=== PATIENT | male | born 1980 | race Caucasian/White ===

== ENCOUNTER 2017-11-16 20:01 | Emergency (ER) | payer BC ==
[2017-11-16] MEDS ORDERED: DIPHTH,PERTUSS(ACELL),TET TOX 0.5 ML DISP.SYRIN. VAX IM ×2 (20:15)
[2017-11-16 20:20] LABS: ADD MAN DIFF? NO
[2017-11-16 20:21] LABS: BASO % 1 % (0-3); EOS # 0.2 x10^3/uL (0.0-0.7); EOS % 3 % (0-3); HEMOGLOBIN 14.5 g/dL (13.0-17.5); LYMPH # 2.1 x10^3/uL (1.0-4.8); LYMPH % 27 % (24-48); MEAN CORPUSCULAR HEMOGLOBIN 29 pg (25-35); MEAN CORPUSCULAR HGB CONC 34 g/dL (31-37); MEAN CORPUSCULAR VOLUME 87 fL (79-100); MONO # 0.7 x10^3/uL (0.0-1.1); MONO % 9 % (0-9); NEUT # 4.7 x10^3uL (1.8-7.7); NEUT % 61 % (31-73); PLATELET COUNT 220 x10^3/uL (140-400); RED BLOOD COUNT 4.94 x10^6/uL (4.30-5.70); RED CELL DISTRIBUTION WIDTH 12.6 % (11.5-14.5); WHITE BLOOD COUNT 7.6 x10^3/uL (4.0-11.0)
[2017-11-16 20:32] LABS: ANION GAP 7 (6-14); BLOOD UREA NITROGEN 15 mg/dL (8-26); BUN/CREATININE RATIO 13 (6-20); CALCIUM 8.4 mg/dL (8.5-10.1); CARBON DIOXIDE 29 mmol/L (21-32); CHLORIDE 102 mmol/L (98-107); CREATININE 1.2 mg/dL (0.7-1.3); GFR 69.3; GLUCOSE 104 mg/dL (70-99); POTASSIUM 3.7 mmol/L (3.5-5.1); SODIUM 138 mmol/L (136-145)
[2017-11-16 20:38] LABS: ALBUMIN 3.9 g/dL (3.4-5.0); ALBUMIN/GLOBULIN RATIO 1.1 (1.0-1.7); ALK PHOS 62 U/L (46-116); ALT (SGPT) 47 U/L (16-63); AST (SGOT) 26 U/L (15-37); TOTAL BILIRUBIN 0.6 mg/dL (0.2-1.0); TOTAL PROTEIN 7.4 g/dL (6.4-8.2)
[2017-11-16] MEDS: IV NORMAL SALINE 1000ML BAG 1,000 ML IV ×2 (20:50)
[2017-11-16] MEDS ORDERED: FAMOTIDINE 20 MG/2 ML VIAL ×2 (21:47)
[2017-11-16] MEDS ORDERED: ONDANSETRON PF 4 MG/2 ML VIAL. ×2 (21:47)
[2017-11-16] MEDS: ONDANSETRON PF 4 MG/2 ML VIAL. IV ×4 (21:55→22:42)
[2017-11-16] MEDS: FAMOTIDINE 20 MG/2 ML VIAL IVP ×2 (21:55)
[2017-11-16] MEDS: MORPHINE SULFATE 10 MG/ML VIAL. IV ×2 (22:42)
[2017-11-16] MEDS: ONDANSETRON ODT 4 MG TAB.RAPDIS. PO ×2 (23:09)
[2017-11-16] MEDS: CEPHALEXIN 250 MG CAPSULE. PO ×2 (23:09)
[2017-11-16] MEDS: HYDROcodone/APAP 10/325 1 TAB TABLET PO ×2 (23:09)
== END 2017-11-16 23:13 | disposition home or self-care (01) ==
LOC: ER 20:01
DX: S02.31XA Fracture of orbital floor, right side, initial encounter for closed fracture (principal); S02.2XXA Fracture of nasal bones, initial encounter for closed fracture; S01.01XA Laceration without foreign body of scalp, initial encounter; S06.0X1A Concussion with loss of consciousness of 30 minutes or less, initial encounter; W50.0XXA Accidental hit or strike by another person, initial encounter; Y93.89 Activity, other specified; Y92.89 Other specified places as the place of occurrence of the external cause; Y99.8 Other external cause status
CPT/HCPCS: 12001; 12011; 36415; 70450; 70486; 71045; 72125; 80053; 85025; 96361; 96374; 96375; 96376; 99285-25; J2270; J2405; J7030; Q0162; S0028

== ENCOUNTER 2020-04-10 00:58 | Emergency (ER) | payer BC ==
[~2020-04-10] VITALS: Ht 175.3 cm; Wt 83.0 kg
[2020-04-10 01:15] VITALS: BP 114/67
[2020-04-10] MEDS ORDERED: LIDOCAINE 1%/EPI 1:100,000 20 ML VIAL. INJ ONE (02:00)
[2020-04-10] MEDS ORDERED: NEOMY/BACITR/POLYMYXIN OINT PACKET. TP ONE (02:00)
[2020-04-10] MEDS ORDERED: CHLO15MO2 PO (03:42)
--- NOTE | 2020-04-10 03:43 | PHYS DOC ---
Past Medical History Past Medical History: No Pertinent History Past Surgical History: Other Additional Past Surgical Histo: LEFT ORBITAL, LEFT KNEE Smoking Status: Never Smoker Alcohol Use: Occasionally Drug Use: None General Adult EDM: Chief Complaint: LACERATION/AVULSION HPI: HPI: Patient is a 39 year old [f__sex] who presents with [] Review of Systems: Review of Systems: Constitutional: Denies fever or chills. [] Eyes: Denies change in visual acuity. [] HENT: Denies nasal congestion or sore throat. [] Respiratory: Denies cough or shortness of breath. [] Cardiovascular: Denies chest pain or edema. [] GI: Denies abdominal pain, nausea, vomiting, bloody stools or diarrhea. [] : Denies dysuria. [] Musculoskeletal: Denies back pain or joint pain. [] Integument: Denies rash. [] Neurologic: Denies headache, focal weakness or sensory changes. [] Endocrine: Denies polyuria or polydipsia. [] Lymphatic: Denies swollen glands. [] Psychiatric: Denies depression or anxiety. [] Heart Score: Risk Factors: Risk Factors: DM, Current or recent (<one month) smoker, HTN, HLP, family history of CAD, obesity. Risk Scores: Score 0 - 3: 2.5% MACE over next 6 weeks - Discharge Home Score 4 - 6: 20.3% MACE over next 6 weeks - Admit for Clinical Observation Score 7 - 10: 72.7% MACE over next 6 weeks - Early Invasive Strategies Current Medications: Current Medications Medications (Trade) Dose Ordered Sig/Laura Start Time Stop Time Status Last Admin Dose Admin Lidocaine/ Epinephrine (LIDOCAINE 1%-EPI 1:100,000 Multi-Dose) 20 ml 1X ONCE 04/10/20 02:00 04/10/20 02:01 DC Neomycin/ Polymyxin/ Bacitracin (Triple Antibiotic Ointment) 1 pkt 1X ONCE 04/10/20 02:00 04/10/20 02:01 DC Allergies: Allergies: Allergies Coded Allergies Type Severity Reaction Last Updated Verified No Known Drug Allergies 11/16/17 No Physical Exam: PE: Constitutional: Well developed, well nourished, no acute distress, non-toxic appearance. [] HENT: Normocephalic, atraumatic, bilateral external ears normal, oropharynx moist, no oral exudates, nose normal. [] Eyes: PERRLA, EOMI, conjunctiva normal, no discharge. [] Neck: Normal range of motion, no tenderness, supple, no stridor. [] Cardiovascular:Heart rate regular rhythm, no murmur [] Lungs & Thorax: Bilateral breath sounds clear to auscultation [] Abdomen: Bowel sounds normal, soft, no tenderness, no masses, no pulsatile masses. [] Skin: Warm, dry, no erythema, no rash. [] Back: No tenderness, no CVA tenderness. [] Extremities: No tenderness, no cyanosis, no clubbing, ROM intact, no edema. [] Neurologic: Alert and oriented X 3, normal motor function, normal sensory function, no focal deficits noted. [] Psychologic: Affect normal, judgement normal, mood normal. [] Current Patient Data: Vital Signs: Vital Signs Date Time Temp Pulse Resp B/P (MAP) Pulse Ox O2 Delivery O2 Flow Rate FiO2 04/10/20 01:15 97.8 82 18 114/67 (83) 95 Room Air 97.8 EKG: EKG: [] Radiology/Procedures: Radiology/Procedures: [] Course & Med Decision Making: Course & Med Decision Making Pertinent Labs and Imaging studies reviewed. (See chart for details) [] Dragon Disclaimer: Janell Disclaimer: This electronic medical record was generated, in whole or in part, using a voice recognition dictation system. Departure Departure Impression: Primary Impression: Lip laceration Qualified Codes: S01.511A - Laceration without foreign body of lip, initial encounter Disposition: HOME, SELF-CARE Condition: STABLE Referrals: NO PCP (PCP) Patient Instructions: Facial Laceration, [id number], Laceration Care, Adult, [id number], Mouth Laceration, [id number] Additional Instructions: Do not soak your wound. You may shower. Clean wound daily with soap and water. Change dressing 2 times daily. Use over the counter antibiotic ointment with each dressing change. Sutures need to be removed in 5 days. Present to your family doctor or local urgent care for removal. You may also present to the ED but it will be an additional visit/charge. After suture removal you may use Vitamin E ointment to soften the wound and p revent scarring. Use over the counter Tylenol and/or Ibuprofen Scripts Chlorhexidine Gluconate (PERIDEX) 15 Ml Mouthwash 15 ML PO BID for 10 Days, #473 ML 0 Refills Prov: DARIUS REILLY DO 04/10/20 Justicifation of Admission Dx: Justifications for Admission: Justification of Admission Dx: N/A DARIUS REILLY DO Apr 10, 2020 03:43
== END 2020-04-10 03:50 | disposition home or self-care (01) ==
LOC: ER 00:58
DX: S01.511A Laceration without foreign body of lip, initial encounter (principal); Z98.890 Other specified postprocedural states; X58.XXXA Exposure to other specified factors, initial encounter; Y93.89 Activity, other specified; Y92.89 Other specified places as the place of occurrence of the external cause; Y99.8 Other external cause status
CPT/HCPCS: 96372; 99283; J3490; 12011

== ENCOUNTER 2020-09-30 19:13 | Inpatient (IN) | payer BC ==
[~2020-09-30] VITALS: Ht 175.3 cm; Wt 87.1 kg
[~2020-09-30 19:13] MED LIST: CHLO15MO2 PO
[2020-09-30] MEDS ORDERED: IV NORMAL SALINE 1000ML BAG 1,000 ML IV ONE (19:45)
[2020-09-30] MEDS ORDERED: PANTOPRAZOLE IV PUSH 40 MG VIAL. IVP ONE (19:45)
[2020-09-30 19:55] LABS: BASO # 0.1 x10^3/uL (0.0-0.2); BASO % 1 % (0-3); EOS # 0.2 x10^3/uL (0.0-0.7); EOS % 2 % (0-3); HEMATOCRIT 36.1 % (39.0-53.0); HEMOGLOBIN 12.5 g/dL (13.0-17.5); LYMPH # 1.1 x10^3/uL (1.0-4.8); LYMPH % 10 % (24-48); MEAN CORPUSCULAR HEMOGLOBIN 31 pg (25-35); MEAN CORPUSCULAR HGB CONC 35 g/dL (31-37); MEAN CORPUSCULAR VOLUME 88 fL (79-100); MONO # 1.1 x10^3/uL (0.0-1.1); MONO % 10 % (0-9); NEUT # 8.9 x10^3/uL (1.8-7.7); NEUT % 78 % (31-73); PLATELET COUNT 295 x10^3/uL (140-400); RED CELL DISTRIBUTION WIDTH 13.1 % (11.5-14.5); WHITE BLOOD COUNT 11.3 x10^3/uL (4.0-11.0)
[2020-09-30] MEDS ORDERED: ONDANSETRON PF 4 MG/2 ML VIAL. IVP ONE ×2 (20:00→21:30)
[2020-09-30 20:11] LABS: CALCIUM 8.4 mg/dL (8.5-10.1); CREATININE 1.3 mg/dL (0.7-1.3); GFR 62.1; POTASSIUM 4.2 mmol/L (3.5-5.1)
[2020-09-30 20:13] LABS: PROTHROMBIN TIME PATIENT 14.5 SEC (11.7-14.0)
[2020-09-30 20:18] LABS: ALBUMIN 3.2 g/dL (3.4-5.0); ALBUMIN/GLOBULIN RATIO 1.1 (1.0-1.7); TOTAL BILIRUBIN 1.6 mg/dL (0.2-1.0)
[2020-09-30] MEDS ORDERED: IOHEXOL 350 MG/ML 100 ML VIAL. IV ONE (20:30)
[2020-09-30] MEDS ORDERED: CONTRAST GIVEN. MC PRN (20:45)
--- NOTE | 2020-09-30 21:18 | RAD ---
Exam: CT of abdomen and pelvis without and with contrast INDICATION: Abdominal pain, hematemesis TECHNIQUE: Sequential axial images through the abdomen and pelvis obtained before and after the admin istration of 90 mL of Isovue-370 IV contrast. Sagittal and coronal reformatted images were reconstruc tyrell from the axial data and reviewed. Comparisons: None FINDINGS: Heart size is normal. No pericardial effusion. Strandy opacities at dependent portion lungs likely re presenting atelectasis. No pleural effusion. Liver, spleen, pancreas, gallbladder and adrenals are unremarkable. No perinephric inflammation or hydronephrosis. No renal or ureteral calculi are identified. Bladder is distended and appears thin-walled. Prostate is not enlarged. Mild diverticulosis at the sigmoid colon without evidence of acute diverticulitis. Remainder of the l arge and small bowel are unremarkable. Appendix is normal. No free intra-abdominal air or fluid. Abdominal aorta has a normal course and caliber. Abdominal vasculature is patent. No enlarged abdominal lymph nodes are identified. No suspicious osseous lesions or acute fractures. IMPRESSION: 1. No evidence for contrast extravasation in the abdomen or pelvis. 2. No acute process identified in the abdomen or pelvis. Exposure: One or more of the following in the visualized dose reduction techniques were utilized for this examination: 1. Automated exposure control 2. Adjustment of the MA and/or KV according to patient size 3. Use of iterative of reconstructive technique Electronically signed by: Emmanuel Roman MD (09/30/2020 9:16 PM) [facility]
--- NOTE | 2020-09-30 21:33 | ED.ADGEN ---
Past Medical History Past Medical History: No Pertinent History Past Surgical History: Other Additional Past Surgical Histo: knee surgery Smoking Status: Never Smoker Alcohol Use: Occasionally Drug Use: None General Adult EDM: Chief Complaint: BLOODY STOOL HPI: HPI: Patient is a 39-year-old previously healthy male who presents to the emergency room complaining of a GI bleed. Patient states that he has been feeling completely normal and then suddenly at 5 this evening he had an episode of bright red vomit. He has never had anything like this previously. He has since had 2 more episodes of bright red vomit and one episode of black tarry stools. He denies any ibuprofen use. He is not an alcohol drinker. He states that he feels fatigued, shortness of breath, lightheaded. He has not had any recent trauma. He denies any fever or URI symptoms. Review of Systems: Review of Systems: Complete ROS is negative unless otherwise documented in HPI Current Medications: Current Medications Medications (Trade) Dose Ordered Sig/Laura Start Time Stop Time Status Last Admin Dose Admin Info (CONTRAST GIVEN -- Rx MONITORING) 1 each PRN DAILY PRN 09/30/20 20:45 10/02/20 20:44 Iohexol (Omnipaque 350 Mg/ml) 90 ml 1X ONCE 09/30/20 20:30 09/30/20 20:31 DC Ondansetron HCl (Zofran) 4 mg 1X ONCE 09/30/20 21:30 09/30/20 21:31 DC 09/30/20 21:23 4 MG Pantoprazole Sodium (PROTONIX VIAL for IV PUSH) 80 mg 1X ONCE 09/30/20 19:45 09/30/20 19:46 DC 09/30/20 19:54 80 MG Sodium Chloride 1,000 ml @ 1,000 mls/hr 1X ONCE 09/30/20 19:45 09/30/20 20:44 DC 09/30/20 19:54 1,000 MLS/HR Allergies: Allergies: Allergies Coded Allergies Type Severity Reaction Last Updated Verified No Known Drug Allergies 11/16/17 No Physical Exam: PE: General: Awake, alert, NAD. Pale HEENT: Atraumatic, EOMI, PERRL, airway patent, moist oral mucosa Neck: Supple, trachea midline Respiratory: CTA bilaterally, normal effort, no wheezing/crackles CV: RRR, no murmur, cap refill <2 GI: Soft, nondistended, nontender, no masses MSK: No obvious deformities Skin: Warm, dry, intact Neuro: A&O x3, speech NL, sensory and motor grossly intact, no focal deficits Psych: Normal affect, normal mood, not suicidal or homicidal Current Patient Data: Labs: Laboratory Tests Test 09/30/20 19:45 09/30/20 20:00 White Blood Count 11.3 x10^3/uL (4.0-11.0) H Red Blood Count 4.10 x10^6/uL (4.30-5.70) L Hemoglobin 12.5 g/dL (13.0-17.5) L Hematocrit 36.1 % (39.0-53.0) L Mean Corpuscular Volume 88 fL (79-100) Mean Corpuscular Hemoglobin 31 pg (25-35) Mean Corpuscular Hemoglobin Concent 35 g/dL (31-37) Red Cell Distribution Width 13.1 % (11.5-14.5) Platelet Count 295 x10^3/uL (140-400) Neutrophils (%) (Auto) 78 % (31-73) H Lymphocytes (%) (Auto) 10 % (24-48) L Monocytes (%) (Auto) 10 % (0-9) H Eosinophils (%) (Auto) 2 % (0-3) Basophils (%) (Auto) 1 % (0-3) Neutrophils # (Auto) 8.9 x10^3/uL (1.8-7.7) H Lymphocytes # (Auto) 1.1 x10^3/uL (1.0-4.8) Monocytes # (Auto) 1.1 x10^3/uL (0.0-1.1) Eosinophils # (Auto) 0.2 x10^3/uL (0.0-0.7) Basophils # (Auto) 0.1 x10^3/uL (0.0-0.2) Prothrombin Time 14.5 SEC (11.7-14.0) H Prothrombin Time INR 1.2 (0.8-1.1) H Fibrinogen 261 mg/dL (200-440) Sodium Level 137 mmol/L (136-145) Potassium Level 4.2 mmol/L (3.5-5.1) Chloride Level 102 mmol/L (98-107) Carbon Dioxide Level 26 mmol/L (21-32) Anion Gap 9 (6-14) Blood Urea Nitrogen 54 mg/dL (8-26) H Creatinine 1.3 mg/dL (0.7-1.3) Estimated GFR (Cockcroft-Gault) 62.1 BUN/Creatinine Ratio 42 (6-20) H Glucose Level 190 mg/dL (70-99) H Calcium Level 8.4 mg/dL (8.5-10.1) L Total Bilirubin 1.6 mg/dL (0.2-1.0) H Aspartate Amino Transferase (AST) 21 U/L (15-37) Alanine Aminotransferase (ALT) 27 U/L (16-63) Alkaline Phosphatase 43 U/L (46-116) L Total Protein 6.0 g/dL (6.4-8.2) L Albumin 3.2 g/dL (3.4-5.0) L Albumin/Globulin Ratio 1.1 (1.0-1.7) Ethyl Alcohol Level < 10 mg/dL (0-10) SARS-CoV-2 Antigen (Rapid) Negative (NEGATIVE) Laboratory Tests 09/30/20 19:45 Laboratory Tests 09/30/20 19:45 Vital Signs: Vital Signs Date Time Temp Pulse Resp B/P (MAP) Pulse Ox O2 Delivery O2 Flow Rate FiO2 09/30/20 21:52 90 16 115/67 (83) 95 Room Air 09/30/20 19:36 98.7 98.7 EKG: EKG: [] Heart Score: Risk Factors: Risk Factors: DM, Current or recent (<one month) smoker, HTN, HLP, family history of CAD, obesity. Risk Scores: Score 0 - 3: 2.5% MACE over next 6 weeks - Discharge Home Score 4 - 6: 20.3% MACE over next 6 weeks - Admit for Clinical Observation Score 7 - 10: 72.7% MACE over next 6 weeks - Early Invasive Strategies Radiology/Procedures: Radiology/Procedures: [] Course & Med Decision Making: Course & Med Decision Making Pertinent Labs and Imaging studies reviewed. (See chart for details) Patient is a 67-vlro-gdw-year-old male who presents to the emergency room complaining of hematemesis and melena. Patient's presentation is concerning for GI bleed. Upon arrival to the emergency room patient's vitals are stable and massive transfusion was not set off as patient is stable. Type and screen, CBC, CMP, lactate, CT abdomen and pelvis were ordered to evaluate for GI bleed. Patient was started on fluids. Initial hemoglobin was 12.5. There is a concern for acute GI bleed. GI was consulted and I did discuss the case with Dr. Garduno. Patient will be admitted and a rapid Covid swab will be done. Patient was discussed with Dr. Rees who will assume care. Dragon Disclaimer: Dragon Disclaimer: This electronic medical record was generated, in whole or in part, using a voice recognition dictation system. Departure Departure Impression: Primary Impression: GI bleed Disposition: ADMITTED INPT THIS HOSP Condition: STABLE Referrals: NO PCP (PCP) ALLY SILVEIRA MD Sep 30, 2020 21:33
[2020-09-30] MEDS ORDERED: METOCLOPRAMIDE HCL 10 MG/2 ML VIAL. IVP PRN (22:30)
[2020-09-30 23:00] VITALS: BP 111/55
[2020-09-30] MEDS: IV NORMAL SALINE 1000ML BAG 1,000 ML IV SCH (23:08)
[2020-09-30 23:58] LABS: HEMATOCRIT 32.8 % (39.0-53.0); HEMOGLOBIN 11.4 g/dL (13.0-17.5); RED BLOOD COUNT 3.73 x10^6/uL (4.30-5.70); RED CELL DISTRIBUTION WIDTH 12.9 % (11.5-14.5); WHITE BLOOD COUNT 10.1 x10^3/uL (4.0-11.0)
[2020-10-01 03:00] VITALS: BP 110/59
[2020-10-01] MEDS: IV NORMAL SALINE 1000ML BAG 1,000 ML IV SCH ×2 (05:22→11:50)
[2020-10-01] MEDS ORDERED: PANTOPRAZOLE SODIUM IV DRIP 80 MG in IV NORMAL SALINE 100ML 100 ML IV SCH (05:30)
[2020-10-01 07:00] VITALS: BP 93/40
[2020-10-01 07:38] LABS: BASO % 0 % (0-3); EOS # 0.1 x10^3/uL (0.0-0.7); EOS % 1 % (0-3); HEMATOCRIT 30.5 % (39.0-53.0); HEMOGLOBIN 10.4 g/dL (13.0-17.5); LYMPH % 15 % (24-48); MEAN CORPUSCULAR HEMOGLOBIN 30 pg (25-35); MEAN CORPUSCULAR HGB CONC 34 g/dL (31-37); MEAN CORPUSCULAR VOLUME 89 fL (79-100); MONO # 0.7 x10^3/uL (0.0-1.1); MONO % 11 % (0-9); NEUT # 4.9 x10^3/uL (1.8-7.7); NEUT % 73 % (31-73); PLATELET COUNT 213 x10^3/uL (140-400); RED BLOOD COUNT 3.44 x10^6/uL (4.30-5.70); RED CELL DISTRIBUTION WIDTH 13.2 % (11.5-14.5); WHITE BLOOD COUNT 6.7 x10^3/uL (4.0-11.0)
--- NOTE | 2020-10-01 07:48 | PDOC1 ---
History and Physical Date of Admission Date of Admission DATE: 10/01/20 TIME: 07:46 Identification/Chief Complaint Chief Complaint Vomiting blood Source Source: Patient History of Present Illness History of Present Illness Mr Watters is a 39 yo male with no significant past medical history who presents to the emergency room on 09/30/2020 complaining of vomiting blood and dark stools. Patient states that he has been feeling completely normal and then suddenly at 5 in the evening on 09/30 he had an episode of bright red emesis. He has never had anything like this previously. He has since had 2 more episodes of bright red emesis and one episode of black tarry stools. He states he does not use NSAIDs or drink alcohol. He states that he feels fatigued, shortness of breath, lightheaded. He has not had any recent trauma. He denies any fever or URI symptoms. Initial hemoglobin was 12.5, dropped to 11.4 and then 10.4 over a 12 hour period. WBC 11.3, NA 137, K4.2, BUN 54, CR 1.3, glucose 190, calcium 8.4, bilirubin 1.6, albumin 3.2, LFTs otherwise within normal laboratory limits, INR 1.2. CTA abdomen/pelvis with no extravasation of contrast and no abnormalities noted. Admitted for further care. Past Medical History Cardiovascular: No pertinent hx Past Surgical History Past Surgical History: Arthroscopy (left knee) Family History Family History: No Significant Social History Smoke: No ALCOHOL: none Drugs: None Current Problem List Problem List Problems Medical Problems: (1) GI bleed Status: Acute Current Medications Current Medications Current Medications Sodium Chloride 1,000 ml @ 1,000 mls/hr 1X ONCE IV Last administered on 09/30/20at 19:54; Start 09/30/20 at 19:45; Stop 09/30/20 at 20:44; Status DC Pantoprazole Sodium (PROTONIX VIAL for IV PUSH) 80 mg 1X ONCE IVP Last administered on 09/30/20at 19:54; Start 09/30/20 at 19:45; Stop 09/30/20 at 19:46; Status DC Ondansetron HCl (Zofran) 4 mg 1X ONCE IVP Last administered on 09/30/20at 19:59; Start 09/30/20 at 20:00; Stop 09/30/20 at 20:02; Status DC Iohexol (Omnipaque 350 Mg/ml) 90 ml 1X ONCE IV ; Start 09/30/20 at 20:30; Stop 09/30/20 at 20:31; Status DC Info (CONTRAST GIVEN -- Rx MONITORING) 1 each PRN DAILY PRN MC SEE COMMENTS; Start 09/30/20 at 20:45; Stop 10/02/20 at 20:44 Ondansetron HCl (Zofran) 4 mg 1X ONCE IVP Last administered on 09/30/20at 21:23; Start 09/30/20 at 21:30; Stop 09/30/20 at 21:31; Status DC Metoclopramide HCl (Reglan Vial) 10 mg PRN Q6HRS PRN IVP NAUSEA/VOMITING Last administered on 09/30/20at 22:31; Start 09/30/20 at 22:30 Sodium Chloride 1,000 ml @ 150 mls/hr Q6H40M IV Last administered on 10/01/20at 05:22; Start 09/30/20 at 22:30 Pantoprazole Sodium 80 mg/ Sodium Chloride 100 ml @ 10 mls/hr Q10H IV Last administered on 10/01/20at 05:57; Start 10/01/20 at 05:30 Active Scripts Active Reported No Known Medications Prior To Admisstion (Info) Each 1 Each 1X Allergies Allergies: Coded Allergies: No Known Drug Allergies (Unverified , 11/16/17) ROS General: No: Chills, Night Sweats, Fatigue, Malaise, Appetite, Other PSYCHOLOGICAL ROS: No: Anxiety, Behavioral Disorder, Concentration difficultie, Decreased libido, Depression, Disorientation, Hallucinations, Hostility, Irritablity, Memory difficulties, Mood Swings, Obsessive thoughts, Physical abuse, Sexual abuse, Sleep disturbances, Suicidal ideation, Other Eyes: No Blurry vision, No Decreased vision, No Double vision, No Dry eyes, No Excessive tearing, No Eye Pain, No Itchy Eyes, No Loss of vision, No Photophobia, No Scotomata, No Uses contacts, No Uses glasses, No Other HEENT: No: Heacaches, Visual Changes, Hearing change, Nasal congestion, Nasal discharge, Oral lesions, Sinus pain, Sore Throat, Epistaxis, Sneezing, Snoring, Tinnitus, Vertigo, Vocal changes, Other ALLERGY AND IMMUNOLOGY: No: Hives, Insect Bite Sensitivity, Itchy/Watery Eyes, Nasal Congestion, Post Nasal Drip, Seasonal Allergies, Other Hematological and Lymphatic: No: Bleeding Problems, Blood Clots, Blood Transfusions, Brusing, Night Sweats, Pallor, Swollen Lymph Nodes, Other ENDOCRINE: No: Breast Changes, Galactorrhea, Hair Pattern Changes, Hot Flashes, Malaise/lethargy, Mood Swings, Palpitations, Polydipsia/polyuria, Skin Changes, Temperature Intolerance, Unexpected Weight Changes, Other Breast: No New/Changing Breast Lumps, No Nipple changes, No Nipple discharge, No Other Respiratory: No: Cough, Hemoptysis, Orthopnea, Pleuritic Pain, Shortness of breath, SOB with excertion, Sputum Changes, Stridor, Tachypnea, Wheezing, Other Cardiovascular: No Chest Pain, No Palpitations, No Orthopnea, No Paroxysmal Noc. Dyspnea, No Edema, No Lt Headedness, No Other Gastrointestinal: Yes Nausea, Yes Vomiting, Yes Abdominal Pain; No Diarrhea, No Constipation, No Melena, No Hematochezia, No Other Genitourinary: No Dysuria, No Frequency, No Incontinence, No Hematuria, No Retention, No Discharge, No Urgency, No Pain, No Flank Pain, No Other, No , No , No , No , No , No , No Musculoskeletal: No Gait Disturbance, No Joint Pain, No Joint Stiffness, No Joint Swelling, No Muscle Pain, No Muscular Weakness, No Pain In:, No Swelling In:, No Other Neurological: No Behavorial Changes, No Bowel/Bladder ControlChng, No Confusion, No Dizziness, No Gait Disturbance, No Headaches, No Impaired Coord/balance, No Memory Loss, No Numbness/Tingling, No Seizures, No Speech Problems, No Tremors, No Visual Changes, No Weakness, No Other Skin: No Dry Skin, No Eczema, No Hair Changes, No Lumps, No Mole Changes, No Mottling, No Nail Changes, No Pruritus, No Rash, No Skin Lesion Changes, No Other, No Acne Physical Exam General: Alert, Oriented X3, Cooperative, No acute distress HEENT: Atraumatic, PERRLA, EOMI, Mucous membr. moist/pink Lungs: Clear to auscultation, Normal air movement Heart: S1S2, RRR, no thrills, no rubs, no gallops, no murmurs Abdomen: Normal bowel sounds, Soft, No tenderness, No hepatosplenomegaly, No masses Rectal Exam: not examined Extremities: No clubbing, No cyanosis, No edema, Normal pulses, No tenderness/swelling Skin: No rashes, No breakdown, No significant lesion Neuro: Normal gait, Normal speech, Strength at 5/5 X4 ext, Normal tone, Sensation intact, Cranial nerves 3-12 NL, Reflexes 2+ Psych/Mental Status: Mental status NL, Mood NL Vitals Vitals Vital Signs Date Time Temp Pulse Resp B/P (MAP) Pulse Ox O2 Delivery O2 Flow Rate FiO2 10/01/20 07:00 98.2 65 18 93/40 (57) 97 Room Air 98.2 Labs Labs Laboratory Tests Test 09/30/20 19:45 09/30/20 20:00 09/30/20 23:45 10/01/20 06:10 White Blood Count 11.3 x10^3/uL (4.0-11.0) 10.1 x10^3/uL (4.0-11.0) 6.7 x10^3/uL (4.0-11.0) Red Blood Count 4.10 x10^6/uL (4.30-5.70) 3.73 x10^6/uL (4.30-5.70) 3.44 x10^6/uL (4.30-5.70) Hemoglobin 12.5 g/dL (13.0-17.5) 11.4 g/dL (13.0-17.5) 10.4 g/dL (13.0-17.5) Hematocrit 36.1 % (39.0-53.0) 32.8 % (39.0-53.0) 30.5 % (39.0-53.0) Mean Corpuscular Volume 88 fL (79-100) 88 fL (79-100) 89 fL (79-100) Mean Corpuscular Hemoglobin 31 pg (25-35) 31 pg (25-35) 30 pg (25-35) Mean Corpuscular Hemoglobin Concent 35 g/dL (31-37) 35 g/dL (31-37) 34 g/dL (31-37) Red Cell Distribution Width 13.1 % (11.5-14.5) 12.9 % (11.5-14.5) 13.2 % (11.5-14.5) Platelet Count 295 x10^3/uL (140-400) 228 x10^3/uL (140-400) 213 x10^3/uL (140-400) Neutrophils (%) (Auto) 78 % (31-73) 73 % (31-73) Lymphocytes (%) (Auto) 10 % (24-48) 15 % (24-48) Monocytes (%) (Auto) 10 % (0-9) 11 % (0-9) Eosinophils (%) (Auto) 2 % (0-3) 1 % (0-3) Basophils (%) (Auto) 1 % (0-3) 0 % (0-3) Neutrophils # (Auto) 8.9 x10^3/uL (1.8-7.7) 4.9 x10^3/uL (1.8-7.7) Lymphocytes # (Auto) 1.1 x10^3/uL (1.0-4.8) 1.0 x10^3/uL (1.0-4.8) Monocytes # (Auto) 1.1 x10^3/uL (0.0-1.1) 0.7 x10^3/uL (0.0-1.1) Eosinophils # (Auto) 0.2 x10^3/uL (0.0-0.7) 0.1 x10^3/uL (0.0-0.7) Basophils # (Auto) 0.1 x10^3/uL (0.0-0.2) 0.0 x10^3/uL (0.0-0.2) Prothrombin Time 14.5 SEC (11.7-14.0) Prothromb Time International Ratio 1.2 (0.8-1.1) Fibrinogen 261 mg/dL (200-440) Sodium Level 137 mmol/L (136-145) Potassium Level 4.2 mmol/L (3.5-5.1) Chloride Level 102 mmol/L (98-107) Carbon Dioxide Level 26 mmol/L (21-32) Anion Gap 9 (6-14) Blood Urea Nitrogen 54 mg/dL (8-26) Creatinine 1.3 mg/dL (0.7-1.3) Estimated GFR (Cockcroft-Gault) 62.1 BUN/Creatinine Ratio 42 (6-20) Glucose Level 190 mg/dL (70-99) Calcium Level 8.4 mg/dL (8.5-10.1) Total Bilirubin 1.6 mg/dL (0.2-1.0) Aspartate Amino Transf (AST/SGOT) 21 U/L (15-37) Alanine Aminotransferase (ALT/SGPT) 27 U/L (16-63) Alkaline Phosphatase 43 U/L (46-116) Total Protein 6.0 g/dL (6.4-8.2) Albumin 3.2 g/dL (3.4-5.0) Albumin/Globulin Ratio 1.1 (1.0-1.7) Ethyl Alcohol Level < 10 mg/dL (0-10) SARS-CoV-2 Antigen (Rapid) Negative (NEGATIVE) Laboratory Tests Test 09/30/20 19:45 09/30/20 20:00 09/30/20 23:45 10/01/20 06:10 White Blood Count 11.3 x10^3/uL (4.0-11.0) 10.1 x10^3/uL (4.0-11.0) 6.7 x10^3/uL (4.0-11.0) Red Blood Count 4.10 x10^6/uL (4.30-5.70) 3.73 x10^6/uL (4.30-5.70) 3.44 x10^6/uL (4.30-5.70) Hemoglobin 12.5 g/dL (13.0-17.5) 11.4 g/dL (13.0-17.5) 10.4 g/dL (13.0-17.5) Hematocrit 36.1 % (39.0-53.0) 32.8 % (39.0-53.0) 30.5 % (39.0-53.0) Mean Corpuscular Volume 88 fL (79-100) 88 fL (79-100) 89 fL (79-100) Mean Corpuscular Hemoglobin 31 pg (25-35) 31 pg (25-35) 30 pg (25-35) Mean Corpuscular Hemoglobin Concent 35 g/dL (31-37) 35 g/dL (31-37) 34 g/dL (31-37) Red Cell Distribution Width 13.1 % (11.5-14.5) 12.9 % (11.5-14.5) 13.2 % (11.5-14.5) Platelet Count 295 x10^3/uL (140-400) 228 x10^3/uL (140-400) 213 x10^3/uL (140-400) Neutrophils (%) (Auto) 78 % (31-73) 73 % (31-73) Lymphocytes (%) (Auto) 10 % (24-48) 15 % (24-48) Monocytes (%) (Auto) 10 % (0-9) 11 % (0-9) Eosinophils (%) (Auto) 2 % (0-3) 1 % (0-3) Basophils (%) (Auto) 1 % (0-3) 0 % (0-3) Neutrophils # (Auto) 8.9 x10^3/uL (1.8-7.7) 4.9 x10^3/uL (1.8-7.7) Lymphocytes # (Auto) 1.1 x10^3/uL (1.0-4.8) 1.0 x10^3/uL (1.0-4.8) Monocytes # (Auto) 1.1 x10^3/uL (0.0-1.1) 0.7 x10^3/uL (0.0-1.1) Eosinophils # (Auto) 0.2 x10^3/uL (0.0-0.7) 0.1 x10^3/uL (0.0-0.7) Basophils # (Auto) 0.1 x10^3/uL (0.0-0.2) 0.0 x10^3/uL (0.0-0.2) Prothrombin Time 14.5 SEC (11.7-14.0) Prothromb Time International Ratio 1.2 (0.8-1.1) Fibrinogen 261 mg/dL (200-440) Sodium Level 137 mmol/L (136-145) Potassium Level 4.2 mmol/L (3.5-5.1) Chloride Level 102 mmol/L (98-107) Carbon Dioxide Level 26 mmol/L (21-32) Anion Gap 9 (6-14) Blood Urea Nitrogen 54 mg/dL (8-26) Creatinine 1.3 mg/dL (0.7-1.3) Estimated GFR (Cockcroft-Gault) 62.1 BUN/Creatinine Ratio 42 (6-20) Glucose Level 190 mg/dL (70-99) Calcium Level 8.4 mg/dL (8.5-10.1) Total Bilirubin 1.6 mg/dL (0.2-1.0) Aspartate Amino Transf (AST/SGOT) 21 U/L (15-37) Alanine Aminotransferase (ALT/SGPT) 27 U/L (16-63) Alkaline Phosphatase 43 U/L (46-116) Total Protein 6.0 g/dL (6.4-8.2) Albumin 3.2 g/dL (3.4-5.0) Albumin/Globulin Ratio 1.1 (1.0-1.7) Ethyl Alcohol Level < 10 mg/dL (0-10) SARS-CoV-2 Antigen (Rapid) Negative (NEGATIVE) Images Images CT abdomen/pelvis with contrast: Heart size is normal. No pericardial effusion. Strandy opacities at dependent portion lungs likely representing atelectasis. No pleural effusion. Liver, spleen, pancreas, gallbladder and adrenals are unremarkable. No perinephric inflammation or hydronephrosis. No renal or ureteral calculi are identified. Bladder is distended and appears thin-walled. Prostate is not enlarged. Mild diverticulosis at the sigmoid colon without evidence of acute diverticulitis. Remainder of the large and small bowel are unremarkable. Appendix is normal. No free intra-abdominal air or fluid. Abdominal aorta has a normal course and caliber. Abdominal vasculature is patent. No enlarged abdominal lymph nodes are identified. No suspicious osseous lesions or acute fractures. IMPRESSION: 1. No evidence for contrast extravasation in the abdomen or pelvis. 2. No acute process identified in the abdomen or pelvis. VTE Prophylaxis Ordered VTE Prophylaxis Devices: Yes VTE Pharmacological Prophylaxi: Contraindicated Assessment/Plan Assessment/Plan A/P: GI bleed - likely PUD or gastric ulcer, NPO. PPI IV, consult GI JOVANI -vasomotor nephropathy Uremia -likely from upper GI bleed. Elevated bilirubin -likely from hemolyzed blood products. We will continue to monitor. Hyperglycemia -no diabetes and history likely stress-induced we will continue to monitor glucose. FEN - NPO PPX - SCDs, PPI FULL CODE Dispo - inpatient Justifications for Admission Other Justification MAURICIO OCONNELL MD Oct 01, 2020 07:48
[2020-10-01] MEDS ORDERED: ONDANSETRON PF 4 MG/2 ML VIAL. IV PRN (08:00)
[2020-10-01] MEDS ORDERED: ACETAMINOPHEN 650 MG SUPP.RECT. PR PRN (08:00)
[2020-10-01 08:06] LABS: ALBUMIN 2.7 g/dL (3.4-5.0); ALBUMIN/GLOBULIN RATIO 1.1 (1.0-1.7); CALCIUM 7.9 mg/dL (8.5-10.1); CREATININE 0.9 mg/dL (0.7-1.3); POTASSIUM 3.9 mmol/L (3.5-5.1); TOTAL BILIRUBIN 1.3 mg/dL (0.2-1.0); TOTAL PROTEIN 5.1 g/dL (6.4-8.2)
--- NOTE | 2020-10-01 10:08 | PDOC2 ---
GI CONSULT Date of Service: DATE: 10/01/20 TIME: 09:59 Reason For Consult: GI bleeding HPI: HPI: 39 y/o male with hematemesis last evening. No premonitory symptoms and denies abdominal pain per se though did have some "unease". Also had melena; last stool last night. May have had some heartburn remotely, not so much now. Denies dysphagia, PUD, GB, liver or pancreatic history. Non-smoker. Occasional alcohol. No ASA or NSAIS use. Typically no diarrhea or constipation. No hematochezia. Wt/appetite OK. GIFH negative. Imagine does not suggest liver disease though glucose a little high. PMH: PMH: OA, prior left knee scope. FH: Family History: CAD, DM, Hypertension Social History: Smoke: No ALCOHOL: occassional Drugs: None ROS: GEN: Denies fevers, chills, sweats HEENT: Denies blurred vision, sore throat CV: Denies chest pain RESP: Denies shortness of air, cough GI: Per HPI : Denies hematuria, dysuria ENDO: Denies weight changes NEURO: Denies confusion, dizziness MSK: Denies weakness, joint pain/swelling SKIN: Denies jaundice, pruritus Vitals: Vitals: Vital Signs Date Time Temp Pulse Resp B/P (MAP) Pulse Ox O2 Delivery O2 Flow Rate FiO2 10/01/20 08:10 Room Air 10/01/20 07:00 98.2 65 18 93/40 (57) 97 98.2 Labs: Labs: Laboratory Tests Test 09/30/20 19:45 09/30/20 20:00 09/30/20 23:45 10/01/20 06:10 White Blood Count 11.3 x10^3/uL (4.0-11.0) 10.1 x10^3/uL (4.0-11.0) 6.7 x10^3/uL (4.0-11.0) Red Blood Count 4.10 x10^6/uL (4.30-5.70) 3.73 x10^6/uL (4.30-5.70) 3.44 x10^6/uL (4.30-5.70) Hemoglobin 12.5 g/dL (13.0-17.5) 11.4 g/dL (13.0-17.5) 10.4 g/dL (13.0-17.5) Hematocrit 36.1 % (39.0-53.0) 32.8 % (39.0-53.0) 30.5 % (39.0-53.0) Mean Corpuscular Volume 88 fL (79-100) 88 fL (79-100) 89 fL (79-100) Mean Corpuscular Hemoglobin 31 pg (25-35) 31 pg (25-35) 30 pg (25-35) Mean Corpuscular Hemoglobin Concent 35 g/dL (31-37) 35 g/dL (31-37) 34 g/dL (31-37) Red Cell Distribution Width 13.1 % (11.5-14.5) 12.9 % (11.5-14.5) 13.2 % (11.5-14.5) Platelet Count 295 x10^3/uL (140-400) 228 x10^3/uL (140-400) 213 x10^3/uL (140-400) Neutrophils (%) (Auto) 78 % (31-73) 73 % (31-73) Lymphocytes (%) (Auto) 10 % (24-48) 15 % (24-48) Monocytes (%) (Auto) 10 % (0-9) 11 % (0-9) Eosinophils (%) (Auto) 2 % (0-3) 1 % (0-3) Basophils (%) (Auto) 1 % (0-3) 0 % (0-3) Neutrophils # (Auto) 8.9 x10^3/uL (1.8-7.7) 4.9 x10^3/uL (1.8-7.7) Lymphocytes # (Auto) 1.1 x10^3/uL (1.0-4.8) 1.0 x10^3/uL (1.0-4.8) Monocytes # (Auto) 1.1 x10^3/uL (0.0-1.1) 0.7 x10^3/uL (0.0-1.1) Eosinophils # (Auto) 0.2 x10^3/uL (0.0-0.7) 0.1 x10^3/uL (0.0-0.7) Basophils # (Auto) 0.1 x10^3/uL (0.0-0.2) 0.0 x10^3/uL (0.0-0.2) Prothrombin Time 14.5 SEC (11.7-14.0) Prothromb Time International Ratio 1.2 (0.8-1.1) Fibrinogen 261 mg/dL (200-440) Sodium Level 137 mmol/L (136-145) 140 mmol/L (136-145) Potassium Level 4.2 mmol/L (3.5-5.1) 3.9 mmol/L (3.5-5.1) Chloride Level 102 mmol/L (98-107) 108 mmol/L (98-107) Carbon Dioxide Level 26 mmol/L (21-32) 25 mmol/L (21-32) Anion Gap 9 (6-14) 7 (6-14) Blood Urea Nitrogen 54 mg/dL (8-26) 35 mg/dL (8-26) Creatinine 1.3 mg/dL (0.7-1.3) 0.9 mg/dL (0.7-1.3) Estimated GFR (Cockcroft-Gault) 62.1 95.0 BUN/Creatinine Ratio 42 (6-20) 39 (6-20) Glucose Level 190 mg/dL (70-99) 105 mg/dL (70-99) Calcium Level 8.4 mg/dL (8.5-10.1) 7.9 mg/dL (8.5-10.1) Total Bilirubin 1.6 mg/dL (0.2-1.0) 1.3 mg/dL (0.2-1.0) Aspartate Amino Transf (AST/SGOT) 21 U/L (15-37) 15 U/L (15-37) Alanine Aminotransferase (ALT/SGPT) 27 U/L (16-63) 22 U/L (16-63) Alkaline Phosphatase 43 U/L (46-116) 37 U/L (46-116) Total Protein 6.0 g/dL (6.4-8.2) 5.1 g/dL (6.4-8.2) Albumin 3.2 g/dL (3.4-5.0) 2.7 g/dL (3.4-5.0) Albumin/Globulin Ratio 1.1 (1.0-1.7) 1.1 (1.0-1.7) Ethyl Alcohol Level < 10 mg/dL (0-10) SARS-CoV-2 Antigen (Rapid) Negative (NEGATIVE) Activated Partial Thromboplast Time 25 SEC (24-38) Thyroid Stimulating Hormone (TSH) 1.232 uIU/mL (0.358-3.74) Allergies: Coded Allergies: No Known Drug Allergies (Unverified , 11/16/17) Medications: Current Medications Medications (Trade) Dose Ordered Sig/Laura Route PRN Reason Start Time Stop Time Status Last Admin Dose Admin Sodium Chloride 1,000 ml @ 1,000 mls/hr 1X ONCE IV 09/30/20 19:45 09/30/20 20:44 DC 09/30/20 19:54 Pantoprazole Sodium (PROTONIX VIAL for IV PUSH) 80 mg 1X ONCE IVP 09/30/20 19:45 09/30/20 19:46 DC 09/30/20 19:54 Ondansetron HCl (Zofran) 4 mg 1X ONCE IVP 09/30/20 20:00 09/30/20 20:02 DC 09/30/20 19:59 Ondansetron HCl (Zofran) 4 mg 1X ONCE IVP 09/30/20 21:30 09/30/20 21:31 DC 09/30/20 21:23 Metoclopramide HCl (Reglan Vial) 10 mg PRN Q6HRS PRN IVP NAUSEA/VOMITING 09/30/20 22:30 09/30/20 22:31 Sodium Chloride 1,000 ml @ 150 mls/hr Q6H40M IV 09/30/20 22:30 10/01/20 05:22 Pantoprazole Sodium 80 mg/ Sodium Chloride 100 ml @ 10 mls/hr Q10H IV 10/01/20 05:30 10/01/20 05:57 Imaging: Imaging: CTA read as no issues. PE: GEN: NAD HEENT: Atraumatic, PERRLA LUNGS: CTAB HEART: RRR, no murmurs ABD: NABS, S/ND/NT, no masses EXTREMITY: No edema SKIN: No rashes, no jaundice NEURO/PSYCH: A & O 3 A/P: A/P: IMP: History consistent with UGI bleed. 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 Little to suggest variceal bleed. Average risk for CRC historically. REC: Keep NPO on PPI drip. EGD later today; he's agreeable. Other rec's after. Thanks. DARIUS VALLEJO MD Oct 01, 2020 10:08
[2020-10-01 11:26] VITALS: BP 113/56
[2020-10-01] MEDS ORDERED: IV RINGERS,LACTATED 1000ML 1,000 ML IV ONE (12:00)
[2020-10-01] MEDS ORDERED: LIDOCAINE 2% PF 5 ML VIAL. ONE (12:12)
[2020-10-01] MEDS ORDERED: PROPOFOL 10 MG/ML (20ML) VIAL. IV ONE (12:12)
--- NOTE | 2020-10-01 12:26 | PDOC4 ---
PROCEDURE Procedure EGD with biopsies. Indication: hematemesis/melena Meds; per anesthesia Findings: E--GEJ at 40cm. Short, 3mm, Mery-Markham tear w/o clot or bleeding. G--"Notched" pylorus/prior ulcer? Antral biopsies. D--Normal to second portion. Dea. well. IMP: Mery-Markham syndrome REC: OK to have liquids. Await biopsies. PO PPI 2 weeks. Home in AM if no issues. DARIUS VALLEJO MD Oct 01, 2020 12:26
[2020-10-01 14:50] LABS: HEMATOCRIT 25.6 % (39.0-53.0); HEMOGLOBIN 8.9 g/dL (13.0-17.5); RED BLOOD COUNT 2.88 x10^6/uL (4.30-5.70); RED CELL DISTRIBUTION WIDTH 13.3 % (11.5-14.5); WHITE BLOOD COUNT 5.3 x10^3/uL (4.0-11.0)
[2020-10-01 15:11] VITALS: BP 101/45
[2020-10-01 19:00] VITALS: BP 119/63
[2020-10-01] MEDS ORDERED: ZOLPIDEM 5 MG TABLET. PO PRN (22:15)
[2020-10-01 22:39] LABS: HEMATOCRIT 25.7 % (39.0-53.0); RED BLOOD COUNT 2.93 x10^6/uL (4.30-5.70); RED CELL DISTRIBUTION WIDTH 12.9 % (11.5-14.5); WHITE BLOOD COUNT 5.7 x10^3/uL (4.0-11.0)
[2020-10-01 23:00] VITALS: BP 115/64
[2020-10-02 05:42] LABS: HEMOGLOBIN A1C 4.7 % (4.8-5.6)
[2020-10-02] MEDS ORDERED: PANTOPRAZOLE 40 MG TABLET.DR. PO SCH (07:30)
[2020-10-02 07:44] LABS: HEMATOCRIT 26.6 % (39.0-53.0); HEMOGLOBIN 9.2 g/dL (13.0-17.5); RED BLOOD COUNT 2.98 x10^6/uL (4.30-5.70); WHITE BLOOD COUNT 4.4 x10^3/uL (4.0-11.0)
[2020-10-02 07:59] VITALS: BP 112/41
--- NOTE | 2020-10-02 08:27 | PDOC ---
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 Elevated bilirubin -likely from hemolyzed blood products. We will continue to monitor. Hyperglycemia -no diabetes and history likely stress-induced we will continue to monitor glucose. FEN - Regular diet PPX - SCDs, PPI FULL CODE Dispo - inpatient History of Present Illness History of Present Illness Mr Watters is a 39 yo male with no significant past medical history who presents to the emergency room on 09/30/2020 complaining of vomiting blood and dark stools. Patient states that he has been feeling completely normal and then suddenly at 5 in the evening on 09/30 he had an episode of bright red emesis. He has never had anything like this previously. He has since had 2 more episodes of bright red emesis and one episode of black tarry stools. He states he does not use NSAIDs or drink alcohol. He states that he feels fatigued, shortness of breath, lightheaded. He has not had any recent trauma. He denies any fever or URI symptoms. Initial hemoglobin was 12.5, dropped to 11.4 and then 10.4 over a 12 hour period. WBC 11.3, NA 137, K4.2, BUN 54, CR 1.3, glucose 190, calcium 8.4, bilirubin 1.6, albumin 3.2, LFTs otherwise within normal laboratory limits, INR 1.2. CTA abdomen/pelvis with no extravasation of contrast and no abnormalities noted. Admitted for further care. 10/01: EGD with Mery-Markham syndrome, biopsies taken. Hb stable at 9.3. Tolerated PO well. No CP or SOB. plan: PPI 2 weeks, f/u biopsies Vitals/I&O Vitals/I&O: Vital Signs Date Time Temp Pulse Resp B/P (MAP) Pulse Ox O2 Delivery O2 Flow Rate FiO2 10/01/20 23:00 98.4 58 20 115/64 (81) 98 Room Air 98.4 10/01/20 12:22 2 l I & O 10/01/20 10/01/20 10/02/20 15:00 23:00 07:00 Intake Total 0 ml 250 ml Output Total 0 ml Balance 0 ml 250 ml 0 ml Physical Exam General: Alert, Oriented X3, Cooperative, No acute distress Abdomen: Normal bowel sounds, Soft, No tenderness, No hepatosplenomegaly, No masses Extremities: No clubbing, No cyanosis, No edema, Normal pulses, No tenderness/swelling Skin: No rashes, No breakdown, No significant lesion Labs Labs: Laboratory Tests Test 10/01/20 14:10 10/01/20 22:00 10/02/20 06:40 White Blood Count 5.3 x10^3/uL (4.0-11.0) 5.7 x10^3/uL (4.0-11.0) 4.4 x10^3/uL (4.0-11.0) Red Blood Count 2.88 x10^6/uL (4.30-5.70) 2.93 x10^6/uL (4.30-5.70) 2.98 x10^6/uL (4.30-5.70) Hemoglobin 8.9 g/dL (13.0-17.5) 9.0 g/dL (13.0-17.5) 9.2 g/dL (13.0-17.5) Hematocrit 25.6 % (39.0-53.0) 25.7 % (39.0-53.0) 26.6 % (39.0-53.0) Mean Corpuscular Volume 89 fL (79-100) 88 fL (79-100) 89 fL (79-100) Mean Corpuscular Hemoglobin 31 pg (25-35) 31 pg (25-35) 31 pg (25-35) Mean Corpuscular Hemoglobin Concent 35 g/dL (31-37) 35 g/dL (31-37) 35 g/dL (31-37) Red Cell Distribution Width 13.3 % (11.5-14.5) 12.9 % (11.5-14.5) 13.0 % (11.5-14.5) Platelet Count 192 x10^3/uL (140-400) 185 x10^3/uL (140-400) 172 x10^3/uL (140-400) Assessment and Plan Assessmemt and Plan Problems Medical Problems: (1) GI bleed Status: Acute Comment Review of Relevant I have reviewed the following items ino (where applicable) has been applied. Medications: Current Medications Medications (Trade) Dose Ordered Sig/Laura Route PRN Reason Start Time Stop Time Status Last Admin Dose Admin Ringer's Solution 1,000 ml @ 75 mls/hr 1X ONCE IV 10/01/20 12:00 10/02/20 01:19 DC 10/01/20 12:03 Pantoprazole Sodium (Protonix) 40 mg DAILYAC PO 10/02/20 07:30 10/02/20 08:02 Zolpidem Tartrate (Ambien) 5 mg PRN QHS PRN PO INSOMNIA 10/01/20 22:15 10/01/20 22:46 Justifications for Admission Abdominal Pain Indications Hemodynamically unstable?: Yes Justification for admission: Patient is hemodynamically unstable as indicated by persistent tachycardia (of.), or hypotension (of..) or orthostatic vitalsigns (of..) despite approapriate treatment. Is patient in severe pain?: Yes Justification for admission: Patient has severe pain that requires (parenteral analgesic-please state analgesics and route) at least every 4 hours necessitating inpatient level of care. Is NPO status required?: Yes Justification for admission: Patient may require to be NPO for greater 24hours making it medically necessary to manage patient as inpatient. Other Justification MAURICIO OCONNELL MD Oct 02, 2020 08:27
[2020-10-02] MEDS ORDERED: PANT40TA77 PO (10:23)
--- NOTE | 2020-10-02 10:28 | PDOC3 ---
Discharge Summary Visit Information Date of Admission: Sep 30, 2020 Date of Discharge: Oct 02, 2020 Admitting Diagnosis: Upper GI bleed Final Diagnosis Problems Medical Problems: (1) GI bleed Status: Acute Brief Hospital Course Allergies Allergies Coded Allergies Type Severity Reaction Last Updated Verified No Known Drug Allergies 10/01/20 No Vital Signs Vital Signs Date Time Temp Pulse Resp B/P (MAP) Pulse Ox O2 Delivery O2 Flow Rate FiO2 10/02/20 07:59 98.0 58 16 112/41 (64) 100 Room Air 98.0 10/01/20 12:22 2 Lab Results Laboratory Tests Test 09/30/20 19:45 09/30/20 20:00 09/30/20 23:45 10/01/20 06:10 White Blood Count 11.3 x10^3/uL (4.0-11.0) 10.1 x10^3/uL (4.0-11.0) 6.7 x10^3/uL (4.0-11.0) Red Blood Count 4.10 x10^6/uL (4.30-5.70) 3.73 x10^6/uL (4.30-5.70) 3.44 x10^6/uL (4.30-5.70) Hemoglobin 12.5 g/dL (13.0-17.5) 11.4 g/dL (13.0-17.5) 10.4 g/dL (13.0-17.5) Hematocrit 36.1 % (39.0-53.0) 32.8 % (39.0-53.0) 30.5 % (39.0-53.0) Mean Corpuscular Volume 88 fL (79-100) 88 fL (79-100) 89 fL (79-100) Mean Corpuscular Hemoglobin 31 pg (25-35) 31 pg (25-35) 30 pg (25-35) Mean Corpuscular Hemoglobin Concent 35 g/dL (31-37) 35 g/dL (31-37) 34 g/dL (31-37) Red Cell Distribution Width 13.1 % (11.5-14.5) 12.9 % (11.5-14.5) 13.2 % (11.5-14.5) Platelet Count 295 x10^3/uL (140-400) 228 x10^3/uL (140-400) 213 x10^3/uL (140-400) Neutrophils (%) (Auto) 78 % (31-73) 73 % (31-73) Lymphocytes (%) (Auto) 10 % (24-48) 15 % (24-48) Monocytes (%) (Auto) 10 % (0-9) 11 % (0-9) Eosinophils (%) (Auto) 2 % (0-3) 1 % (0-3) Basophils (%) (Auto) 1 % (0-3) 0 % (0-3) Neutrophils # (Auto) 8.9 x10^3/uL (1.8-7.7) 4.9 x10^3/uL (1.8-7.7) Lymphocytes # (Auto) 1.1 x10^3/uL (1.0-4.8) 1.0 x10^3/uL (1.0-4.8) Monocytes # (Auto) 1.1 x10^3/uL (0.0-1.1) 0.7 x10^3/uL (0.0-1.1) Eosinophils # (Auto) 0.2 x10^3/uL (0.0-0.7) 0.1 x10^3/uL (0.0-0.7) Basophils # (Auto) 0.1 x10^3/uL (0.0-0.2) 0.0 x10^3/uL (0.0-0.2) Prothrombin Time 14.5 SEC (11.7-14.0) Prothromb Time International Ratio 1.2 (0.8-1.1) Fibrinogen 261 mg/dL (200-440) Sodium Level 137 mmol/L (136-145) 140 mmol/L (136-145) Potassium Level 4.2 mmol/L (3.5-5.1) 3.9 mmol/L (3.5-5.1) Chloride Level 102 mmol/L (98-107) 108 mmol/L (98-107) Carbon Dioxide Level 26 mmol/L (21-32) 25 mmol/L (21-32) Anion Gap 9 (6-14) 7 (6-14) Blood Urea Nitrogen 54 mg/dL (8-26) 35 mg/dL (8-26) Creatinine 1.3 mg/dL (0.7-1.3) 0.9 mg/dL (0.7-1.3) Estimated GFR (Cockcroft-Gault) 62.1 95.0 BUN/Creatinine Ratio 42 (6-20) 39 (6-20) Glucose Level 190 mg/dL (70-99) 105 mg/dL (70-99) Calcium Level 8.4 mg/dL (8.5-10.1) 7.9 mg/dL (8.5-10.1) Total Bilirubin 1.6 mg/dL (0.2-1.0) 1.3 mg/dL (0.2-1.0) Aspartate Amino Transf (AST/SGOT) 21 U/L (15-37) 15 U/L (15-37) Alanine Aminotransferase (ALT/SGPT) 27 U/L (16-63) 22 U/L (16-63) Alkaline Phosphatase 43 U/L (46-116) 37 U/L (46-116) Total Protein 6.0 g/dL (6.4-8.2) 5.1 g/dL (6.4-8.2) Albumin 3.2 g/dL (3.4-5.0) 2.7 g/dL (3.4-5.0) Albumin/Globulin Ratio 1.1 (1.0-1.7) 1.1 (1.0-1.7) Ethyl Alcohol Level < 10 mg/dL (0-10) SARS-CoV-2 Antigen (Rapid) Negative (NEGATIVE) Activated Partial Thromboplast Time 25 SEC (24-38) Hemoglobin A1c 4.7 % (4.8-5.6) Thyroid Stimulating Hormone (TSH) 1.232 uIU/mL (0.358-3.74) Test 10/01/20 14:10 10/01/20 22:00 10/02/20 06:40 White Blood Count 5.3 x10^3/uL (4.0-11.0) 5.7 x10^3/uL (4.0-11.0) 4.4 x10^3/uL (4.0-11.0) Red Blood Count 2.88 x10^6/uL (4.30-5.70) 2.93 x10^6/uL (4.30-5.70) 2.98 x10^6/uL (4.30-5.70) Hemoglobin 8.9 g/dL (13.0-17.5) 9.0 g/dL (13.0-17.5) 9.2 g/dL (13.0-17.5) Hematocrit 25.6 % (39.0-53.0) 25.7 % (39.0-53.0) 26.6 % (39.0-53.0) Mean Corpuscular Volume 89 fL (79-100) 88 fL (79-100) 89 fL (79-100) Mean Corpuscular Hemoglobin 31 pg (25-35) 31 pg (25-35) 31 pg (25-35) Mean Corpuscular Hemoglobin Concent 35 g/dL (31-37) 35 g/dL (31-37) 35 g/dL (31-37) Red Cell Distribution Width 13.3 % (11.5-14.5) 12.9 % (11.5-14.5) 13.0 % (11.5-14.5) Platelet Count 192 x10^3/uL (140-400) 185 x10^3/uL (140-400) 172 x10^3/uL (140-400) Laboratory Tests Test 10/01/20 14:10 10/01/20 22:00 10/02/20 06:40 White Blood Count 5.3 x10^3/uL (4.0-11.0) 5.7 x10^3/uL (4.0-11.0) 4.4 x10^3/uL (4.0-11.0) Red Blood Count 2.88 x10^6/uL (4.30-5.70) 2.93 x10^6/uL (4.30-5.70) 2.98 x10^6/uL (4.30-5.70) Hemoglobin 8.9 g/dL (13.0-17.5) 9.0 g/dL (13.0-17.5) 9.2 g/dL (13.0-17.5) Hematocrit 25.6 % (39.0-53.0) 25.7 % (39.0-53.0) 26.6 % (39.0-53.0) Mean Corpuscular Volume 89 fL (79-100) 88 fL (79-100) 89 fL (79-100) Mean Corpuscular Hemoglobin 31 pg (25-35) 31 pg (25-35) 31 pg (25-35) Mean Corpuscular Hemoglobin Concent 35 g/dL (31-37) 35 g/dL (31-37) 35 g/dL (31-37) Red Cell Distribution Width 13.3 % (11.5-14.5) 12.9 % (11.5-14.5) 13.0 % (11.5-14.5) Platelet Count 192 x10^3/uL (140-400) 185 x10^3/uL (140-400) 172 x10^3/uL (140-400) Brief Hospital Course Mr Watters is a 39 yo male with no significant past medical history who presents to the emergency room on 09/30/2020 complaining of vomiting blood and dark stools. Patient states that he has been feeling completely normal and then suddenly at 5 in the evening on 09/30 he had an episode of bright red emesis. He has never had anything like this previously. He has since had 2 more episodes of bright red emesis and one episode of black tarry stools. He states he does not use NSAIDs or drink alcohol. He states that he feels fatigued, shortness of breath, lightheaded. He has not had any recent trauma. He denies any fever or URI symptoms. Initial hemoglobin was 12.5, dropped to 11.4 and then 10.4 over a 12 hour period. WBC 11.3, NA 137, K4.2, BUN 54, CR 1.3, glucose 190, calcium 8.4, bilirubin 1.6, albumin 3.2, LFTs otherwise within normal laboratory limits, INR 1.2. CTA abdomen/pelvis with no extravasation of contrast and no abnormalities noted. Admitted for further care. 10/01: EGD with Mery-Markham syndrome, biopsies taken. Hb stable at 9.3. Tolerated PO well. No CP or SOB. 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 Elevated bilirubin -likely from hemolyzed blood products. We will continue to monitor. Hyperglycemia -no diabetes and history likely stress-induced we will continue to monitor glucose. Plan: PPI 2 weeks, f/u biopsies Discharge Information Condition at Discharge: Improved Follow Up: Weeks (2) Disposition/Orders: D/C to Home Scheduled Info (No Known Medications Prior To Admisstion) Each, 1 EACH MC 1X for no meds, (Reported) Entered as Reported by: HENRIETTA MARTÍNEZ on 10/01/20102 Last Action: New Order on 10/01/20102 by HENRIETTA MARTÍNEZ Pantoprazole Sodium (Pantoprazole Sodium ) 40 Mg Tablet., 40 MG PO DAILYAC for Mery-Markham/GERD for 14 Days, #14 Prescribed by: MAURICIO OCONNELL MD on 10/02/20 1023 Justicifation of Admission Dx: Justifications for Admission: Justification of Admission Dx: Yes MAURICIO OCONNELL MD Oct 02, 2020 10:28
[2020-10-02 11:15] VITALS: BP 117/70
--- NOTE | 2020-10-02 11:30 | NUR ---
Discharge Note: Patient was discharged home with self care. Patients IV was discontinued without any complications per ALICE. Patients friend at the bedside at the time of discharge education. Patient was given discharge summary/instructions, follow-ups, and educational material. Patients prescription was sent over to patients preferred pharmacy. Patient did not have any further questions or concerns. Patient decided to ambulate to the main entrance accompanied by ALICE Avina, with all personal belongings, where patients friend was waiting for him to take him home.
== END 2020-10-02 12:03 | disposition home or self-care (01) | DRG 368 ==
LOC: ER 19:13 → 5 NORTH 21:59
PROVIDERS: ADMIT Internal Medicine; ATTEND Internal Medicine
PROC: 0DB68ZX Excision of Stomach, Via Natural or Artificial Opening Endoscopic, Diagnostic (ICD-10-PCS; principal; 2020-10-01 13:00)
DX: K22.6 Gastro-esophageal laceration-hemorrhage syndrome (principal); N17.0 Acute kidney failure with tubular necrosis; R17 Unspecified jaundice; R73.9 Hyperglycemia, unspecified; Z20.828 Contact with and (suspected) exposure to other viral communicable diseases; Z83.3 Family history of diabetes mellitus; Z82.49 Family history of ischemic heart disease and other diseases of the circulatory system
CPT/HCPCS: 36415; 43239; 74174; 80053; 83036; 84443; 85025; 85027; 85384; 85610; 85730; 86850; 86900; 86901; 87426; 96361; 96374; 96375; 96376; 99285; C9113; G0480; J2405; J2704; J2765; J7030; J7120; U0003; G0378